=== PATIENT | female | born 1990 | race Caucasian/White ===

== ENCOUNTER 2017-11-04 14:27 | Inpatient (IN) | payer OTHER ==
[2017-11-04] MEDS ORDERED: morphine 2 MG INJ IV (15:30)
[2017-11-04] MEDS ORDERED: NACL 0.9% 3 ML SYG IV (16:00)
[2017-11-04] MEDS: morphine 2 MG INJ IV (17:01)
[2017-11-04] MEDS: ONDANSETRON 4 MG INJ IV (22:32)
[2017-11-04 22:45] LABS: AMPHETAMINE/METHAMPHETAMINE Negative (NEGATIVE); BARBITURATES Negative (NEGATIVE); BENZODIAZEPINES Negative (NEGATIVE); CANNABINOIDS Negative (NEGATIVE)
[2017-11-04 22:46] LABS: COCAINE Positive (NEGATIVE); OPIATES Positive (NEGATIVE)
[2017-11-05] MEDS: SOD CHLORIDE 0.9% 1,000 ML IV ×3 (00:16→18:58)
[2017-11-05] MEDS: morphine 2 MG INJ IV ×4 (00:22→19:59)
[2017-11-05 05:37] LABS: ADD MAN DIFF? NO
[2017-11-05 05:47] LABS: BASOPHILS % 0.4 % (0.0-2.0); EOSINOPHILS # 0.3 10^3/ul (0.0-0.5); EOSINOPHILS % 3.8 % (0.0-7.0); HEMATOCRIT 37.1 % (37.0-47.0); HEMOGLOBIN 12.2 g/dl (12.0-16.0); LYMPHOCYTES # 2.6 10^3/ul (0.8-2.9); LYMPHOCYTES % 32.1 % (15.0-51.0); MEAN CORPUSCULAR HEMOGLOBIN 31.2 pg (29.0-33.0); MEAN CORPUSCULAR HGB CONC 32.9 g/dl (32.0-37.0); MEAN CORPUSCULAR VOLUME 94.9 fl (82.0-101.0); MEAN PLATELET VOLUME 11.3 fl (7.4-10.4); MONOCYTE # 0.6 10^3/ul (0.3-0.9); MONOCYTES % 7.5 % (0.0-11.0); NEUTROPHIL # 4.5 10^3/ul (1.6-7.5); PLATELET COUNT 208 10^3/UL (140-415); RED BLOOD COUNT 3.91 10^6/ul (4.20-5.40); RED CELL DISTRIBUTION WIDTH 12.6 % (11.5-14.5)
[2017-11-05 05:47] LABS: WHITE BLOOD COUNT 8.1 10^3/ul (4.8-10.8)
[2017-11-05 05:55] LABS: INR 0.99; PARTIAL THROMBOPLASTIN TIME 28.6 Sec (25.0-35.0); PROTIME 13.2 Sec (11.9-14.9)
[2017-11-05 06:20] LABS: CHOL/HDL RATIO 2.6 RATIO; CHOLESTEROL 102 mg/dl (100-200); HDL CHOLESTEROL 38 mg/dl (33-83); LDL CHOLESTEROL,CALCULATED 45 mg/dl; MAGNESIUM 2.1 mg/dl (1.7-2.5); TRIGLYCERIDES 95 mg/dl (0-149)
[2017-11-05 06:20] LABS: PHOSPHORUS 2.9 mg/dl (2.5-4.9)
[2017-11-05 06:26] LABS: ALANINE AMINOTRANSFERASE 23 IU/L (13-69); ALBUMIN 3.7 g/dl (3.3-4.9); ALBUMIN/GLOBULIN RATIO 1.32; ALKALINE PHOSPHATASE 63 IU/L (42-121); ANION GAP 11 (8-16); ASPARTATE AMINO TRANSFERASE 29 IU/L (15-46); BILIRUBIN,INDIRECT 0.6 mg/dl (0-1.1); BILIRUBIN,TOTAL 0.6 mg/dl (0.2-1.3); BLOOD UREA NITROGEN 10 mg/dl (7-20); CALCIUM 8.5 mg/dl (8.4-10.2); CARBON DIOXIDE 23 mmol/L (21-31); CHLORIDE 109 mmol/L (97-110); CREATININE 0.74 mg/dl (0.44-1.00); GLUCOSE 98 mg/dl (70-220); POTASSIUM 3.7 mmol/L (3.5-5.1); SODIUM 139 mmol/L (135-144); TOTAL PROTEIN 6.5 g/dl (6.1-8.1)
[2017-11-05 06:40] LABS: THYROID STIMULATING HORMONE 0.138 MIU/L (0.465-4.680)
[2017-11-05 06:45] LABS: FREE T4 (FREE THYROXINE) 0.95 ng/dl (0.79-2.35)
[2017-11-05 06:47] LABS: HEMOGLOBIN A1C 5.2 % (0-5.9)
[2017-11-05] MEDS: ENOXAPARIN 40 MG/0.4 ML SYG SC (09:00)
[2017-11-05] MEDS: ACETAMINOPHEN 325 MG TAB PO ×2 (10:07→23:41)
[2017-11-05 14:46] LABS: ADD MAN DIFF? NO
[2017-11-05 15:09] LABS: ANION GAP 6 (8-16); BLOOD UREA NITROGEN 5 mg/dl (7-20); CALCIUM 6.6 mg/dl (8.4-10.2); CARBON DIOXIDE 21 mmol/L (21-31); CHLORIDE 117 mmol/L (97-110); CREATININE 0.49 mg/dl (0.44-1.00); GLUCOSE 78 mg/dl (70-220); SODIUM 141 mmol/L (135-144)
[2017-11-05 15:14] LABS: WHITE BLOOD COUNT 5.5 10^3/ul (4.8-10.8)
[2017-11-05 15:14] LABS: BASOPHILS % 0.4 % (0.0-2.0); EOSINOPHILS # 0.2 10^3/ul (0.0-0.5); EOSINOPHILS % 3.3 % (0.0-7.0); HEMOGLOBIN 10.1 g/dl (12.0-16.0); LYMPHOCYTES # 1.6 10^3/ul (0.8-2.9); LYMPHOCYTES % 28.8 % (15.0-51.0); MEAN CORPUSCULAR HEMOGLOBIN 31.2 pg (29.0-33.0); MEAN CORPUSCULAR HGB CONC 32.6 g/dl (32.0-37.0); MEAN CORPUSCULAR VOLUME 95.7 fl (82.0-101.0); MONOCYTE # 0.4 10^3/ul (0.3-0.9); MONOCYTES % 6.3 % (0.0-11.0); NEUTROPHIL # 3.4 10^3/ul (1.6-7.5); NEUTROPHILS % 61.2 % (39.0-77.0); PLATELET COUNT 153 10^3/UL (140-415); RED BLOOD COUNT 3.24 10^6/ul (4.20-5.40); RED CELL DISTRIBUTION WIDTH 12.3 % (11.5-14.5)
[2017-11-05 15:33] LABS: POTASSIUM 2.6 mmol/L (3.5-5.1)
[2017-11-05 17:12] LABS: POTASSIUM 2.2 mmol/L (3.5-5.1)
[2017-11-05 17:53] LABS: MAGNESIUM 1.6 mg/dl (1.7-2.5)
[2017-11-05] MEDS ORDERED: POTASSIUM CHLORIDE 50 ML IVPB (18:00)
[2017-11-05] MEDS: POTASSIUM CHLORIDE 100 ML IVPB ×3 (18:48→23:41)
[2017-11-05] MEDS: ONDANSETRON 4 MG INJ IV (21:16)
[2017-11-06] MEDS: morphine 2 MG INJ IV ×4 (01:52→15:44)
[2017-11-06] MEDS: MAGNESIUM SULFATE 3 GM in DEXTROSE 5% 100 ML IVPB (02:01)
[2017-11-06] MEDS: POTASSIUM CHLORIDE 100 ML IVPB (02:03)
[2017-11-06] MEDS: SOD CHLORIDE 0.9% 1,000 ML IV ×2 (06:01→16:00)
[2017-11-06] MEDS ORDERED: ROCURONIUM 50 MG INJ ×2 (07:00→18:54)
[2017-11-06 07:18] LABS: POTASSIUM 4.2 mmol/L (3.5-5.1)
[2017-11-06] MEDS: SOD CHLORIDE 0.9% 250 ML IV* (08:22)
[2017-11-06 11:51] LABS: IMMEDIATE SPIN CROSSMATCH 1 2
[2017-11-06 15:42] LABS: ADD MAN DIFF? NO
[2017-11-06 15:45] LABS: WHITE BLOOD COUNT 6.7 10^3/ul (4.8-10.8)
[2017-11-06 15:45] LABS: BASOPHILS % 0.3 % (0.0-2.0); EOSINOPHILS # 0.2 10^3/ul (0.0-0.5); HEMATOCRIT 42.4 % (37.0-47.0); HEMOGLOBIN 13.6 g/dl (12.0-16.0); LYMPHOCYTES # 2.1 10^3/ul (0.8-2.9); LYMPHOCYTES % 31.7 % (15.0-51.0); MEAN CORPUSCULAR HEMOGLOBIN 29.7 pg (29.0-33.0); MEAN CORPUSCULAR HGB CONC 32.1 g/dl (32.0-37.0); MEAN CORPUSCULAR VOLUME 92.6 fl (82.0-101.0); MEAN PLATELET VOLUME 11.1 fl (7.4-10.4); MONOCYTE # 0.4 10^3/ul (0.3-0.9); MONOCYTES % 5.7 % (0.0-11.0); NEUTROPHILS % 59.2 % (39.0-77.0); PLATELET COUNT 210 10^3/UL (140-415); RED BLOOD COUNT 4.58 10^6/ul (4.20-5.40); RED CELL DISTRIBUTION WIDTH 13.7 % (11.5-14.5)
[2017-11-06 16:02] LABS: ALANINE AMINOTRANSFERASE 24 IU/L (13-69); ALBUMIN 4.2 g/dl (3.3-4.9); ALBUMIN/GLOBULIN RATIO 1.31; ALKALINE PHOSPHATASE 68 IU/L (42-121); ANION GAP 12 (8-16); ASPARTATE AMINO TRANSFERASE 25 IU/L (15-46); BILIRUBIN,INDIRECT 0.5 mg/dl (0-1.1); BILIRUBIN,TOTAL 0.5 mg/dl (0.2-1.3); BLOOD UREA NITROGEN 5 mg/dl (7-20); CALCIUM 9.2 mg/dl (8.4-10.2); CARBON DIOXIDE 26 mmol/L (21-31); CHLORIDE 106 mmol/L (97-110); CREATININE 0.68 mg/dl (0.44-1.00); GLUCOSE 96 mg/dl (70-220); POTASSIUM 4.3 mmol/L (3.5-5.1); SODIUM 140 mmol/L (135-144); TOTAL PROTEIN 7.4 g/dl (6.1-8.1)
[2017-11-06] MEDS ORDERED: PROPOFOL 20 ML (18:54)
[2017-11-06] MEDS ORDERED: MIDAZOLAM 1 MG/ML 2 ML INJ (18:54)
[2017-11-06] MEDS ORDERED: CEFAZOLIN 1 GM INJ (18:54)
[2017-11-06] MEDS ORDERED: ONDANSETRON 4 MG INJ (18:54)
[2017-11-06] MEDS ORDERED: GLYCOPYRROLATE 0.4 MG INJ (18:54)
[2017-11-06] MEDS ORDERED: FENTAnyl 50 MCG/ML VIAL (18:54)
[2017-11-06] MEDS ORDERED: NEOSTIGMINE 3 MG/3 ML SYRINGE (18:54)
[2017-11-06] MEDS ORDERED: DEXAMETHASONE 4 MG/ML 1 ML INJ (18:54)
[2017-11-06] MEDS ORDERED: ROPIVACAINE 0.5 % 30 ML VIAL (18:57)
[2017-11-06] MEDS ORDERED: HYDROmorphONE 1 MG/5 ML IV SYRINGE IV (20:30)
[2017-11-06] MEDS ORDERED: LABETALOL HCL 20MG INJ IV (20:30)
[2017-11-06] MEDS ORDERED: EPHEDrine SULFATE 50 MG/5 ML SYG IV (20:30)
[2017-11-06] MEDS ORDERED: ONDANSETRON 4 MG INJ IV (20:30)
[2017-11-06] MEDS ORDERED: IPRATROPIUM (NEB) 0.5 MG/2.5 ML AMP HHN (20:30)
[2017-11-06] MEDS ORDERED: MIDAZOLAM 1 MG/ML 2 ML INJ IV (20:30)
[2017-11-06] MEDS ORDERED: hydrALAzine 20 MG INJ IV (20:30)
[2017-11-06] MEDS ORDERED: FENTAnyl 50 MCG/ML VIAL IV ×3 (20:30)
[2017-11-06] MEDS ORDERED: ALBUTEROL 0.083% (NEB) 2.5 MG/3 ML AMP HHN (20:30)
[2017-11-06] MEDS ORDERED: OXYCODONE/ACETAMINOPHEN (5/325) TAB PO ×2 (20:30)
[2017-11-06] MEDS ORDERED: TRIMETHOBENZAMIDE 100 MG/ML VIAL IM (20:30)
[2017-11-06] MEDS ORDERED: MEPERIDINE 25 MG INJ IV (20:30)
[2017-11-06] MEDS ORDERED: DIPHENHYDRAMINE 50 MG INJ IV (20:30)
[2017-11-06] MEDS ORDERED: KETOROLAC 30 MG INJ (22:55)
[2017-11-06] MEDS ORDERED: SUGAMMADEX SODIUM 200 MG/2 ML VIAL IV (23:21)
[2017-11-06] MEDS: HYDROmorphONE 1 MG/5 ML IV SYRINGE IV (23:57)
[2017-11-07] MEDS ORDERED: NACL 0.9% 3 ML SYG IV
[2017-11-07] MEDS: HYDROmorphONE 1 MG/5 ML IV SYRINGE IV (00:06)
[2017-11-07 00:45] LABS: ADD MAN DIFF? NO
[2017-11-07 00:49] LABS: WHITE BLOOD COUNT 15.3 10^3/ul (4.8-10.8)
[2017-11-07 00:49] LABS: BASOPHILS % 0.2 % (0.0-2.0); EOSINOPHILS # 0.2 10^3/ul (0.0-0.5); EOSINOPHILS % 1.6 % (0.0-7.0); HEMATOCRIT 34.1 % (37.0-47.0); HEMOGLOBIN 10.8 g/dl (12.0-16.0); LYMPHOCYTES # 2.6 10^3/ul (0.8-2.9); LYMPHOCYTES % 16.8 % (15.0-51.0); MEAN CORPUSCULAR HEMOGLOBIN 30.1 pg (29.0-33.0); MEAN CORPUSCULAR HGB CONC 31.7 g/dl (32.0-37.0); MONOCYTE # 0.6 10^3/ul (0.3-0.9); MONOCYTES % 4.1 % (0.0-11.0); NEUTROPHIL # 11.7 10^3/ul (1.6-7.5); NEUTROPHILS % 76.8 % (39.0-77.0); PLATELET COUNT 175 10^3/UL (140-415); RED BLOOD COUNT 3.59 10^6/ul (4.20-5.40); RED CELL DISTRIBUTION WIDTH 13.9 % (11.5-14.5)
[2017-11-07] MEDS: D5W-0.45 NACL + KCL 20 MEQ 1,000 ML IV ×4 (01:13→23:13)
[2017-11-07] MEDS: SOD CHLORIDE 0.9% 1,000 ML IV ×3 (01:21→22:00)
[2017-11-07] MEDS: CEFAZOLIN 1 GM/50 ML (PMX) 50 ML IVPB ×3 (01:21→16:14)
[2017-11-07] MEDS: morphine 2 MG INJ IV ×4 (09:02→21:30)
[2017-11-07] MEDS: ENOXAPARIN 40 MG/0.4 ML SYG SC (09:02)
[2017-11-07] MEDS: HYDROCODONE/APAP (5/325) TAB PO ×4 (10:20→23:06)
[2017-11-08] MEDS: morphine 2 MG INJ IV ×7 (00:13→22:50)
[2017-11-08] MEDS: HYDROCODONE/APAP (5/325) TAB PO ×3 (02:24→14:34)
[2017-11-08 05:42] LABS: ADD MAN DIFF? NO
[2017-11-08 05:54] LABS: WHITE BLOOD COUNT 7.4 10^3/ul (4.8-10.8)
[2017-11-08 05:54] LABS: BASOPHILS % 0.3 % (0.0-2.0); EOSINOPHILS # 0.1 10^3/ul (0.0-0.5); EOSINOPHILS % 1.2 % (0.0-7.0); HEMATOCRIT 31.6 % (37.0-47.0); HEMOGLOBIN 10.5 g/dl (12.0-16.0); LYMPHOCYTES # 1.2 10^3/ul (0.8-2.9); LYMPHOCYTES % 16.6 % (15.0-51.0); MEAN CORPUSCULAR HEMOGLOBIN 30.8 pg (29.0-33.0); MEAN CORPUSCULAR HGB CONC 33.2 g/dl (32.0-37.0); MEAN CORPUSCULAR VOLUME 92.7 fl (82.0-101.0); MEAN PLATELET VOLUME 11.4 fl (7.4-10.4); MONOCYTE # 0.5 10^3/ul (0.3-0.9); MONOCYTES % 7.3 % (0.0-11.0); NEUTROPHIL # 5.5 10^3/ul (1.6-7.5); NEUTROPHILS % 74.3 % (39.0-77.0); PLATELET COUNT 169 10^3/UL (140-415); RED BLOOD COUNT 3.41 10^6/ul (4.20-5.40); RED CELL DISTRIBUTION WIDTH 13.2 % (11.5-14.5)
[2017-11-08 06:24] LABS: ANION GAP 9 (8-16); BLOOD UREA NITROGEN 5 mg/dl (7-20); CALCIUM 8.5 mg/dl (8.4-10.2); CARBON DIOXIDE 26 mmol/L (21-31); CHLORIDE 107 mmol/L (97-110); CREATININE 0.62 mg/dl (0.44-1.00); GLUCOSE 139 mg/dl (70-220); MAGNESIUM 1.8 mg/dl (1.7-2.5); POTASSIUM 3.5 mmol/L (3.5-5.1); SODIUM 138 mmol/L (135-144)
[2017-11-08] MEDS: ENOXAPARIN 40 MG/0.4 ML SYG SC (08:29)
[2017-11-09] MEDS: HYDROCODONE/APAP (5/325) TAB PO ×3 (00:59→12:04)
[2017-11-09] MEDS: morphine 2 MG INJ IV ×3 (04:15→13:36)
[2017-11-09 05:58] LABS: ADD MAN DIFF? NO
[2017-11-09 06:05] LABS: BASOPHILS % 0.4 % (0.0-2.0); EOSINOPHILS # 0.2 10^3/ul (0.0-0.5); EOSINOPHILS % 2.6 % (0.0-7.0); HEMATOCRIT 33.5 % (37.0-47.0); HEMOGLOBIN 11.1 g/dl (12.0-16.0); LYMPHOCYTES # 1.7 10^3/ul (0.8-2.9); MEAN CORPUSCULAR HEMOGLOBIN 30.7 pg (29.0-33.0); MEAN CORPUSCULAR HGB CONC 33.1 g/dl (32.0-37.0); MEAN CORPUSCULAR VOLUME 92.5 fl (82.0-101.0); MEAN PLATELET VOLUME 11.2 fl (7.4-10.4); MONOCYTE # 0.6 10^3/ul (0.3-0.9); MONOCYTES % 8.4 % (0.0-11.0); NEUTROPHIL # 4.7 10^3/ul (1.6-7.5); NEUTROPHILS % 64.2 % (39.0-77.0); PLATELET COUNT 195 10^3/UL (140-415); RED BLOOD COUNT 3.62 10^6/ul (4.20-5.40); RED CELL DISTRIBUTION WIDTH 12.7 % (11.5-14.5)
[2017-11-09 06:05] LABS: WHITE BLOOD COUNT 7.3 10^3/ul (4.8-10.8)
[2017-11-09 06:41] LABS: ANION GAP 13 (8-16); BLOOD UREA NITROGEN 4 mg/dl (7-20); CALCIUM 9.2 mg/dl (8.4-10.2); CARBON DIOXIDE 27 mmol/L (21-31); CHLORIDE 102 mmol/L (97-110); CREATININE 0.61 mg/dl (0.44-1.00); GLUCOSE 108 mg/dl (70-220); SODIUM 138 mmol/L (135-144)
[2017-11-09] MEDS: ENOXAPARIN 40 MG/0.4 ML SYG SC (08:14)
[2017-11-18 14:05] LABS: URINE DRUG SCREEN RESULT DRUG(S) DETECTED:
== END 2017-11-09 16:30 | disposition home or self-care (01) | DRG 494 ==
LOC: MS1 14:27
PROC: 0PSG04Z Reposition Left Humeral Shaft with Internal Fixation Device, Open Approach (ICD-10-PCS; principal; 2017-11-06 19:06)
DX: S42.342A Displaced spiral fracture of shaft of humerus, left arm, initial encounter for closed fracture (principal); E66.9 Obesity, unspecified; E83.42 Hypomagnesemia; S44.02XA Injury of ulnar nerve at upper arm level, left arm, initial encounter; D64.9 Anemia, unspecified; E87.6 Hypokalemia; W01.0XXA Fall on same level from slipping, tripping and stumbling without subsequent striking against object, initial encounter; Y92.34 Swimming pool (public) as the place of occurrence of the external cause; Z68.30 Body mass index [BMI] 30.0-30.9, adult
CPT/HCPCS: 36430; 71045; 73060; 73070-52; 80048; 80053; 80061; 80307; 83036; 83735; 84100; 84132; 84439; 84443; 84703; 85025; 85610; 85730; 86850; 86900; 86901; 86920; 93005